=== PATIENT | female | born 1950 | race Two or more races ===

== ENCOUNTER 2023-08-17 10:02 | Inpatient (IN) | payer OTHER ==
[~2023-08-17] VITALS: Ht 157.5 cm; Wt 92.3 kg
[2023-08-17] MEDS ORDERED: SODIUM CHLORIDE 0.9% 1,000 ML IV ONE ×3 (11:00→13:00)
[2023-08-17 11:26] LABS: Basophils # (auto) 0 10 ^3/uL (0-0.2); Basophils % (auto) 0.3 % (0.0-2.0); Eosinophils # (auto) 0.1 10 ^3/uL (0-0.8); Eosinophils % (auto) 0.4 % (0.0-7.0); Hemoglobin 12.7 g/dL (12.2-16.2); Lymphocytes # (auto) 0.8 10 ^3/uL (0.4-5.4); Lymphocytes % (auto) 6.2 % (10.0-50.0); Mean Corpuscular Hemoglobin 28.2 pg (28.0-32.0); Mean Corpuscular Hgb Conc. 32.5 g/dL (32.0-36.0); Mean Corpuscular Volume 86.7 fL (80.0-100.0); Monocytes # (auto) 0.7 10 ^3/uL (0-1.3); Monocytes % (auto) 5.1 % (0.0-12.0); Neutrophils # (auto) 11.3 10 ^3/uL (1.6-8.6); Nucleated Red Blood Cells % 0.1 %; Red Cell Distribution Width 14.6 % (11.8-14.3); White Blood Cell 12.9 10^3/uL (4.4-10.8)
[2023-08-17] MEDS ORDERED: DEXTROSE 10% 1,000 ML IV ONE (11:45)
[2023-08-17] MEDS ORDERED: DEXTROSE (50%) 50ML SYRG IV ONE (11:45)
[2023-08-17 11:48] LABS: Alanine Aminotransferase 34 U/L (7-40); Albumin 4.3 g/dL (3.2-4.8); Alkaline Phosphatase 163 U/L (46-116); Anion Gap 8 (5-15); Aspartate Aminotransferase 60 U/L (13-40); BUN/Creatinine Ratio 28.2 (10.0-20.0); Blood Urea Nitrogen 22 mg/dL (9-23); Calcium 9.4 mg/dL (8.5-10.1); Carbon Dioxide 24 mmol/L (20-30); Chloride 107 mmol/L (98-107); Creatine Kinase IFCC 328 U/L (34-145); Potassium 4.3 mmol/L (3.5-5.1); Sodium 139 mmol/L (136-145)
[2023-08-17 11:49] LABS: Bilirubin, Total 0.4 mg/dL (0.2-1.0); Total Protein 7.8 g/dL (5.7-8.2)
[2023-08-17 12:17] LABS: Glucose 42 mg/dL (74-106)
[2023-08-17] MEDS ORDERED: SODIUM BICARBONATE 8.4 % INJ 50ML VIAL IV ONE (13:00)
[2023-08-17] MEDS ORDERED: cefTRIAXone 1GM/50ML D5W 50 ML IV ONE (13:00)
[2023-08-17 14:02] LABS: Urine Bacteria FEW /hpf (None Seen); Urine Blood Negative /uL (Negative); Urine Clarity HAZY (Clear); Urine Color Colorless (Yellow); Urine Mucus FEW (None Seen); Urine Protein, UAD 1+ (Negative); Urine Specific Gravity 1.012 (1.001-1.035); Urine Urobilinogen Normal (Negative); Urine WBC 43 /hpf (0 - 5); Urine pH 6.5 (5.0-8.0)
[2023-08-17 14:15] VITALS: PULSE 81; RESP 20; O2SAT 96
[2023-08-17] MEDS ORDERED: ACETAMINOPHEN 500 MG TAB PO PRN (15:30)
[2023-08-17] MEDS: D5W/SOD CHLO 0.9% 1,000 ML IV SCH (15:30)
[2023-08-17] MEDS ORDERED: NITROGLYCERIN 0.4 MG SL TAB SL PRN (15:30)
[2023-08-17] MEDS ORDERED: DEXTROSE (50%) 50ML SYRG IV PRN (15:30)
[2023-08-17] MEDS ORDERED: ONDANSETRON HCL 4 MG/2 ML VIAL IV PRN (15:30)
[2023-08-17] MEDS ORDERED: MORPHINE SULFATE INJ 2 MG/ml SYRG IV PRN ×2 (15:30)
[2023-08-17] MEDS ORDERED: HYDROcodone-ACET 5/325MG TAB PO PRN (15:30)
[2023-08-17] MEDS: InsuLIN REG 1unit/0.01ml Soln (100units/ml) SC SCH ×2 (16:00→20:31)
[2023-08-17] MEDS: ACCU-CHEK COMFORT CURVE STRIP VI SCH ×2 (16:00→20:21)
[2023-08-17 17:49] VITALS: PULSE 93; RESP 20; O2SAT 96
[2023-08-17 19:20] VITALS: PULSE 78; RESP 18; O2SAT 96
[2023-08-18] VITALS (8 sets, daily range): BP systolic 113–153; BP diastolic 47–67; PULSE 71–98; RESP 17–20; TEMP 97.7–100.6; O2SAT 89–97
[2023-08-18] MEDS: ACCU-CHEK COMFORT CURVE STRIP VI SCH ×6 (00:09→20:31)
[2023-08-18] MEDS ORDERED: LISI20TA56 PO (01:33)
[2023-08-18] MEDS ORDERED: ATOR40TA52 PO (01:34)
[2023-08-18] MEDS: D5W/SOD CHLO 0.9% 1,000 ML IV SCH ×3 (02:15→21:38)
[2023-08-18] MEDS: InsuLIN REG 1unit/0.01ml Soln (100units/ml) SC SCH ×6 (04:00→20:23)
[2023-08-18 06:12] LABS: Alanine Aminotransferase 28 U/L (7-40); Albumin 3.6 g/dL (3.2-4.8); Alkaline Phosphatase 142 U/L (46-116); Anion Gap 7 (5-15); Aspartate Aminotransferase 57 U/L (13-40); BUN/Creatinine Ratio 15.1 (10.0-20.0); Bilirubin, Total 0.3 mg/dL (0.2-1.0); Blood Urea Nitrogen 14 mg/dL (9-23); Calcium 8.7 mg/dL (8.7-10.4); Carbon Dioxide 25 mmol/L (20-30); Chloride 109 mmol/L (98-107); Glucose 64 mg/dL (74-106); Magnesium 2.2 mg/dL (1.6-2.6); Potassium 4.3 mmol/L (3.5-5.1); Sodium 141 mmol/L (136-145); Total Protein 6.6 g/dL (5.7-8.2)
[2023-08-18] MEDS: PANTOPRAZOLE 40 MG TAB PO SCH (09:27)
[2023-08-18] MEDS: LISINOPRIL 20 MG TAB PO SCH (09:29)
[2023-08-18] MEDS: cefTRIAXone 1GM/50ML D5W 50 ML IV SCH (09:31)
[2023-08-18 11:31] LABS: Basophils # (auto) 0.1 10 ^3/uL (0-0.2); Basophils % (auto) 0.7 % (0.0-2.0); Eosinophils # (auto) 0.1 10 ^3/uL (0-0.8); Eosinophils % (auto) 1.1 % (0.0-7.0); Hematocrit 38.5 % (36.0-46.0); Hemoglobin 12.3 g/dL (12.2-16.2); Lymphocytes # (auto) 1.2 10 ^3/uL (0.4-5.4); Lymphocytes % (auto) 10.1 % (10.0-50.0); Mean Corpuscular Hemoglobin 28.5 pg (28.0-32.0); Mean Corpuscular Hgb Conc. 31.9 g/dL (32.0-36.0); Mean Corpuscular Volume 89.3 fL (80.0-100.0); Monocytes # (auto) 1.1 10 ^3/uL (0-1.3); Neutrophils # (auto) 9.4 10 ^3/uL (1.6-8.6); Neutrophils % (auto) 79.1 % (37.0-80.0); Nucleated Red Blood Cells % 0.2 %; Red Blood Cells 4.31 10^6/uL (4.0-5.20); Red Cell Distribution Width 15.1 % (11.8-14.3); White Blood Cell 11.8 10^3/uL (4.4-10.8)
[2023-08-19] VITALS (8 sets, daily range): BP systolic 135–149; BP diastolic 54–65; PULSE 73–94; RESP 16–20; TEMP 98.5–99.2; O2SAT 93–95
[2023-08-19] MEDS: InsuLIN REG 1unit/0.01ml Soln (100units/ml) SC SCH ×6 (00:32→23:58)
[2023-08-19] MEDS: ACCU-CHEK COMFORT CURVE STRIP VI SCH ×6 (00:38→23:55)
[2023-08-19 07:11] LABS: Alanine Aminotransferase 24 U/L (7-40); Anion Gap 7 (5-15); Calcium 8.6 mg/dL (8.5-10.1); Carbon Dioxide 23 mmol/L (20-30); Chloride 108 mmol/L (98-107); Glucose 111 mg/dL (74-106); Sodium 138 mmol/L (136-145)
[2023-08-19 07:12] LABS: Albumin 3.5 g/dL (3.2-4.8); BUN/Creatinine Ratio 15.7 (10.0-20.0); Blood Urea Nitrogen 13 mg/dL (9-23)
[2023-08-19 07:13] LABS: Aspartate Aminotransferase 32 U/L (13-40)
[2023-08-19 07:14] LABS: Bilirubin, Total 0.3 mg/dL (0.2-1.0); Total Protein 6.5 g/dL (5.7-8.2)
[2023-08-19] MEDS: D5W/SOD CHLO 0.9% 1,000 ML IV SCH (07:30)
[2023-08-19 08:06] LABS: Basophils # (auto) 0 10 ^3/uL (0-0.2); Basophils % (auto) 0.4 % (0.0-2.0); Eosinophils # (auto) 0.2 10 ^3/uL (0-0.8); Eosinophils % (auto) 1.7 % (0.0-7.0); Hematocrit 35.6 % (36.0-46.0); Hemoglobin 11.4 g/dL (12.2-16.2); Lymphocytes # (auto) 1.2 10 ^3/uL (0.4-5.4); Lymphocytes % (auto) 10.7 % (10.0-50.0); Mean Corpuscular Hemoglobin 27.8 pg (28.0-32.0); Mean Corpuscular Volume 87.1 fL (80.0-100.0); Monocytes % (auto) 8.8 % (0.0-12.0); Neutrophils # (auto) 8.9 10 ^3/uL (1.6-8.6); Neutrophils % (auto) 78.4 % (37.0-80.0); Red Blood Cells 4.08 10^6/uL (4.0-5.20); Red Cell Distribution Width 14.8 % (11.8-14.3); White Blood Cell 11.4 10^3/uL (4.4-10.8)
[2023-08-19] MEDS: cefTRIAXone 1GM/50ML D5W 50 ML IV SCH (08:29)
[2023-08-19 09:10] LABS: Alkaline Phosphatase 138 U/L (46-116)
[2023-08-19] MEDS ORDERED: DEXTROSE (50%) 50ML SYRG IV PRN (10:00)
[2023-08-19] MEDS: PANTOPRAZOLE 40 MG TAB PO SCH (10:32)
[2023-08-19] MEDS: LISINOPRIL 20 MG TAB PO SCH (10:34)
[2023-08-19] MEDS: DOCUSATE SOD 100 MG CAP PO PRN (12:24)
[2023-08-20 05:00] VITALS: BP 136/51; PULSE 89; RESP 18; TEMP 98.1; O2SAT 93
[2023-08-20] MEDS: ACCU-CHEK COMFORT CURVE STRIP VI SCH ×4 (05:34→23:25)
[2023-08-20] MEDS: InsuLIN REG 1unit/0.01ml Soln (100units/ml) SC SCH ×4 (05:37→23:31)
[2023-08-20 08:00] VITALS: BP 149/54; PULSE 90; PULSE 92; RESP 20; TEMP 99.2; O2SAT 94
[2023-08-20 09:00] VITALS: BP 128/54; PULSE 92; RESP 18; TEMP 98; O2SAT 91
[2023-08-20] MEDS: cefTRIAXone 1GM/50ML D5W 50 ML IV SCH (09:51)
[2023-08-20] MEDS: PANTOPRAZOLE 40 MG TAB PO SCH (09:51)
[2023-08-20] MEDS: DOCUSATE SOD 100 MG CAP PO PRN (09:51)
[2023-08-20] MEDS: LISINOPRIL 20 MG TAB PO SCH (09:52)
[2023-08-20 13:00] VITALS: BP 139/50; PULSE 87; RESP 20; TEMP 98.3; O2SAT 95
[2023-08-20 20:00] VITALS: BP 145/88; PULSE 86; PULSE 92; RESP 16; TEMP 98.6; O2SAT 94
[2023-08-20 21:49] VITALS: BP 145/58; PULSE 92; RESP 16; TEMP 98.6; O2SAT 94
[2023-08-21 05:00] VITALS: BP 139/63; PULSE 94; RESP 20; TEMP 98.2; O2SAT 95
[2023-08-21] MEDS: ACCU-CHEK COMFORT CURVE STRIP VI SCH ×2 (05:41→13:01)
[2023-08-21] MEDS: InsuLIN REG 1unit/0.01ml Soln (100units/ml) SC SCH ×2 (05:47→13:05)
[2023-08-21 08:00] VITALS: BP 134/52; PULSE 81; PULSE 96; RESP 16; TEMP 99.1; O2SAT 94
[2023-08-21 09:00] VITALS: BP 134/52; PULSE 81; RESP 16; TEMP 99.1; O2SAT 94
[2023-08-21] MEDS: PANTOPRAZOLE 40 MG TAB PO SCH (09:51)
[2023-08-21] MEDS: cefTRIAXone 1GM/50ML D5W 50 ML IV SCH (09:51)
[2023-08-21] MEDS: LISINOPRIL 20 MG TAB PO SCH (09:52)
[2023-08-21 10:37] LABS: Basophils # (auto) 0.1 10 ^3/uL (0-0.2); Basophils % (auto) 0.4 % (0.0-2.0); Eosinophils # (auto) 0.2 10 ^3/uL (0-0.8); Eosinophils % (auto) 1.6 % (0.0-7.0); Hematocrit 36.4 % (36.0-46.0); Hemoglobin 11.9 g/dL (12.2-16.2); Lymphocytes # (auto) 1.3 10 ^3/uL (0.4-5.4); Lymphocytes % (auto) 10.1 % (10.0-50.0); Mean Corpuscular Hemoglobin 28.6 pg (28.0-32.0); Mean Corpuscular Hgb Conc. 32.7 g/dL (32.0-36.0); Mean Corpuscular Volume 87.4 fL (80.0-100.0); Monocytes # (auto) 1.1 10 ^3/uL (0-1.3); Monocytes % (auto) 8.5 % (0.0-12.0); Neutrophils # (auto) 9.9 10 ^3/uL (1.6-8.6); Neutrophils % (auto) 79.4 % (37.0-80.0); Red Blood Cells 4.16 10^6/uL (4.0-5.20); Red Cell Distribution Width 14.6 % (11.8-14.3); White Blood Cell 12.4 10^3/uL (4.4-10.8)
[2023-08-21 11:01] LABS: Anion Gap 5 (5-15); Carbon Dioxide 24 mmol/L (20-30); Chloride 102 mmol/L (98-107); Potassium 4.5 mmol/L (3.5-5.1)
[2023-08-21 11:02] LABS: Calcium 8.7 mg/dL (8.5-10.1)
[2023-08-21 11:06] LABS: Sodium 131 mmol/L (136-145)
[2023-08-21 11:07] LABS: Glucose 329 mg/dL (74-106)
[2023-08-21 11:08] LABS: Blood Urea Nitrogen 16 mg/dL (9-23)
[2023-08-21 13:00] VITALS: BP 129/48; PULSE 92; RESP 16; TEMP 98.5; O2SAT 96
[2023-08-21] MEDS ORDERED: CIPR500T4 PO (15:47)
[2023-08-21] MEDS ORDERED: INSU1INJ3 SC (15:47)
[2023-08-21 16:11] VITALS: BP 129/48; RESP 16; TEMP 98.5; O2SAT 96
== END 2023-08-21 16:50 | disposition home or self-care (01) | DRG 871 ==
LOC: EDBD 10:02 → ER 10:02 → TELE 15:27 → TELE-WESTW 23:49
PROVIDERS: ADMIT Nurse Practitioner Acute Care; ATTEND Nurse Practitioner Acute Care
DX: A41.89 Other specified sepsis (principal); J96.01 Acute respiratory failure with hypoxia; M62.82 Rhabdomyolysis; E11.65 Type 2 diabetes mellitus with hyperglycemia; N30.90 Cystitis, unspecified without hematuria; R55 Syncope and collapse; E66.9 Obesity, unspecified; B96.1 Klebsiella pneumoniae [K. pneumoniae] as the cause of diseases classified elsewhere; E11.649 Type 2 diabetes mellitus with hypoglycemia without coma; E78.5 Hyperlipidemia, unspecified; I10 Essential (primary) hypertension; M19.90 Unspecified osteoarthritis, unspecified site; Z88.5 Allergy status to narcotic agent; Z68.37 Body mass index [BMI] 37.0-37.9, adult
CPT/HCPCS: 36415; 70450; 71045; 72125; 80048; 80053; 81001; 82550; 82962; 83036; 83735; 83880; 84484; 85025; 87040; 87086; 87088; 87186; 93005; 97110; 97116; 97163; 97530; G0378; J0696; J1815; J7042